=== PATIENT | male | born 1995 | race Caucasian/White ===

== ENCOUNTER 2023-11-16 12:37 | Emergency (ER) | payer OTHER, SELFPAY ==
[2023-11-16 12:38] VITALS: BP 163/98
--- NOTE | 2023-11-16 13:44 | ED.GENMED ---
History of Present Illness
General
Chief Complaint: Abdominal Symptoms
Source: patient
Exam Limitations: none
Time Seen by Provider: 11/16/23 13:31
History of Present Illness
History of Present Illness:
See MDM
Past History
Past History
ED Past Medical History: None
ED Past Surgical History: None
Social History
Tobacco: Non-smoker
Alcohol: None
Drug: Marijuana
Phy Exam
Physical Exam
Physical Exam:
See MDM
Course
Orders/Labs/Results
Orders:
Orders
11/16/23 13:41
0.9% Sodium Chloride 1000 ml [Nss] 1,000 ml IV BOLUS
Iohexol [Omnipaque] See Protocol PO NOW STA
Ketorolac [Toradol] 30 mg IV NOW STA
Ondansetron Injectable [Zofran] 4 mg IV NOW STA
11/16/23 13:42
CT Abd/pel W Iv And Oral Contr Urgent
Comment:
Reason For Exam: General abd pain
11/16/23 14:00
Complete Blood Count/With Diff Urgent
Comprehensive Metabolic Panel Urgent
Lipase Urgent
Magnesium Urgent
11/16/23 15:00
Capsaicin [Zostrix 0.025% Cream] See Dose Instructions TOPICAL ONCE ONE
11/16/23 17:13
0.9% Sodium Chloride 1000 ml [Nss] 1,000 ml IV BOLUS
Ketorolac [Toradol] 15 mg IV NOW STA
Abnormal Lab Results
11/16/23
14:00
WBC 11.1 H 10^3/uL
(4.8-10.8)
RBC 6.99 H 10^6/uL
(4.70-6.10)
MCV 62.7 L fL
(80.0-94.0)
MCH 21.0 L pg
(27.0-31.0)
RDW 17.2 H %
(11.5-14.5)
Plt Count 402 H 10^3/uL
(130-400)
Abs Immat Gran (auto) 0.1 H 10^3/uL
(0-0.05)
Absolute Neuts (auto) 7.6 H 10^3/uL
(1.4-6.5)
Absolute Monos (auto) 1.0 H 10^3/uL
(0.1-0.6)
Sodium 132 L mmol/L
(135-145)
Chloride 94 L mmol/L
(98-107)
Glucose 107 H mg/dl
(70-99)
Magnesium 2.6 H mg/dl
(1.6-2.3)
Total Bilirubin 1.7 H mg/dl
(0.2-1.3)
11/16/23 14:00
11/16/23 14:00
Vital Signs
Initial and Last Documented VS:
Initial Vital Signs
Temp Pulse Resp BP Pulse Ox
98.4 F 89 16 163/98 98
11/16/23 12:38 11/16/23 12:38 11/16/23 12:38 11/16/23 12:38 11/16/23 12:38
Last Documented Vital Signs
Temp Pulse Resp BP Pulse Ox
98.4 F 68 18 156/86 98
11/16/23 12:38 11/16/23 17:00 11/16/23 17:00 11/16/23 17:00 11/16/23 17:00
MDM/Problems Addressed
Differential Diagnosis Includes:
HPI and MDM Narrative:
27-year-old male presenting with persistent nausea, vomiting and diarrhea. This is associated with abdominal cramping. Patient has had several episodes like this over the past year or so. He was told at a different hospital that he has colitis.
Patient saw GI yesterday and has endoscopy and colonoscopy scheduled in 3 weeks. Patient and father concerned that he cannot wait that long. Patient states hot showers helps which made me question whether or not he has been smoking marijuana.
Patient states he has been smoking marijuana but cannot find relationship between the amount that he is smoking and his 'flares'. Patient states his GI doctor did reference possible THC hyperemesis
Will obtain CT to rule out acute pathology. Will give IV fluids and will try capsaicin cream
Physical exam
General: Well appearing and non-toxic
HEENT: protecting airway. Dry mucous membrane
Neck: appears supple
CV: No evidence of cyanosis
Resp: No accessory muscle use
Abd: Non-distended. Vague tenderness throughout. No rebound
Extremities: No deformities
Neuro: alert
Psych: Normal affect
Skin: Intact
Problems Addressed including Acute and Chronic Conditions affecting care:
1. Nausea and vomiting
Acuity: acute
Prognosis: stable
Details: Will give Zofran and capsaicin cream
2. Abdominal pain
Acuity: acute
Prognosis: stable
Details: Will give Toradol and obtain CT abdomen/pelvis
3. Dehydration
Acuity: acute
Prognosis: stable
Details: Will give IV fluids
Updates
After fluids, Toradol and capsaicin cream, patient states he feels drastically better. Blood work without clinical significance and CT negative for acute pathology. Discussed brat diet and keeping his GI appointment
Differential Diagnosis (but not limited to): Cannabis hyperemesis, colitis, acute appendicitis
Testing considered: Stool samples but doubt infectious etiology given the intermittent nature
Drug therapy (if applicable): OTC meds, please see d/c instruction regarding Rx drugs
Amount and/or Complexity of Data Reviewed
Clinical info obtained from: Patient
External data reviewed: N/A
Labs I independently reviewed (but not limited to): Very mild leukocytosis which is likely reactive from vomiting
Radiology: The CT scan was personally and independently reviewed. In addition, official CT report reviewed.
Pulse Ox: not hypoxic
EKG independently reviewed: N/A
Integrity Director: N/A
Critical Care: N/A
Risk of Complication:
Social Determinants of health: Good social support
Discussed with other providers: N/A
Escalation of Care includes Admit/Obs: After being observed in the Emergency Department, pt stable for discharge.
Occasional wrong word or 'sound a like' substitutions may have occurred due to the inherent limitations of voice recognition software. Read the chart carefully and recognize, using context, where substitutions have occurred.
*Critical Care Note
Total Time (30-74mins, 75-104mins- exclusive of procedures): Not Applicable
ED Attending Note
-
Portions of this chart may have been created with voice recognition software.� Occasional wrong word or��sound alike� substitutions may have occurred due to the inherent limitations of voice recognition software.
Discharge Plan
Departure
Patient Disposition: Home (Routine Discharge)
Date of Disposition: 11/16/23
Time of Disposition: 17:15
Patient with high blood pressure during this ER visit?: Yes
Discharge Problem:
Vomiting and diarrhea
Instructions: Nausea and Vomiting, Adult (DC), BLOOD PRESSURE
Prescriptions:
New
diclofenac potassium 50 mg tablet
50 mg PO BID Qty: 14 0RF
ondansetron 4 mg Tablet,Disintegrating
4 mg PO BIDPRN PRN (Reason: nausea/vomiting) Qty: 10 0RF
Referrals:
UNKNOWN - PT DOES,NOT KNOW [Family Provider] -
Activity Restrictions/Additional Instructions:
Please return for any worsening symptoms.
You may return at any time if you have further concerns.
As we discussed, it is not certain what is causing your symptoms. Your blood work and the CT scan showed no acute issues. The next piece of the puzzle is the endoscopy and colonoscopy. Please make sure you do not miss this appointment.
You can use the provided capsaicin cream up to 4 times a day.
Interventions
Interventions:
*Risk Screen - Suicide Last Done: 11/16/23 12:38
*General Assessment Last Done: 11/16/23 12:38
*Neglect/Abuse Screening Last Done: 11/16/23 12:38
ED- Fall Risk Assessment Last Done: 11/16/23 14:56
*ED COVID-19 Vaccine History Last Done: 11/16/23 14:56
JL-Grutdd-[id number] Assessment Last Done: 11/16/23 14:56
Discharge Date and Time
Print Language: TUNISIAN
[2023-11-16] MEDS: ZOFRAN 4 MG IV (13:57)
[2023-11-16] MEDS: TORADOL 30 MG IV (13:57)
[2023-11-16] MEDS: OMNIPAQUE 50 ML PO (13:58)
[2023-11-16] MEDS: NSS 1000 IV ×2 (13:58→17:24)
[2023-11-16 14:11] LABS: % Basophils 0.4 % (0-2); % Eosinophils 0.3 % (0-6); % Immature Granulocytes 0.5 % (0-0.5); % Lymphocytes 20.9 % (20.5-51.1); % Monocytes 9.2 % (1.7-9.3); % Neutrophils 68.7 % (42.2-75.2); Absolute Immature Granulocytes 0.1 10^3/uL (0-0.05); Absolute Lymphocytes 2.3 10^3/uL (1.2-3.4); Absolute Neutrophils 7.6 10^3/uL (1.4-6.5); Hematocrit 43.8 % (39.0-52.0); Hemoglobin 14.7 g/dL (13.0-18.0); Mean Corp Hgb Conc. 33.6 g/dL (33.0-37.0); Mean Corpuscular Volume 62.7 fL (80.0-94.0); Mean Platelet Volume 10.3 fL (7.4-10.4); Nucleated Red Blood Cells % 0 % (-); Platelet Count 402 10^3/uL (130-400); Red Blood Cell Count 6.99 10^6/uL (4.70-6.10); Red Cell Dist. Width 17.2 % (11.5-14.5); White Blood Cell Count 11.1 10^3/uL (4.8-10.8)
[2023-11-16 14:35] LABS: ALT (SGPT) 36 U/L (0-50); AST (SGOT) 38 U/L (17-59); Alkaline Phosphatase 92 U/L (38-126); Blood Urea Nitrogen 13 mg/dl (9-20); Calcium 9.9 mg/dl (8.4-10.2); Carbon Dioxide 24 mmol/L (22-30); Chloride 94 mmol/L (98-107); Glucose 107 mg/dl (70-99); Lipase 275 U/L (23-300); Magnesium 2.6 mg/dl (1.6-2.3); Potassium 3.5 mmol/L (3.5-5.1); Sodium 132 mmol/L (135-145); Total Bilirubin 1.7 mg/dl (0.2-1.3); Total Protein 7.7 g/dl (6.3-8.2); eGFR > 60.00
[2023-11-16 14:52] VITALS: BMI 29.9
[2023-11-16] MEDS: ZOSTRIX 0.025% CREAM 1 APPLIC TOPICAL (15:06)
[2023-11-16 15:09] VITALS: BP 150/95
[2023-11-16 17:00] VITALS: BP 156/86
[2023-11-16] MEDS: TORADOL 15 MG IV (17:23)
[2023-11-16 18:44] VITALS: BP 141/82
== END 2023-11-16 18:45 | disposition home or self-care (01) ==
LOC: EMR 12:37
PROVIDERS: EMERGENCY PHYSICIAN Student in an Organized Health Care Education/Training Program
DX: R11.2 Nausea with vomiting, unspecified (principal); R19.7 Diarrhea, unspecified; R03.0 Elevated blood-pressure reading, without diagnosis of hypertension
CPT/HCPCS: 99285; 96374; 96375; 96376; 74177; 80053; 83690; 83735; 85025; Q9967

== ENCOUNTER 2024-10-10 12:58 | Emergency (ER) | payer OTHER, SELFPAY ==
[2024-10-10 12:58] VITALS: BMI 31.7
[2024-10-10 13:00] VITALS: BP 161/106
--- NOTE | 2024-10-10 13:43 | ED.GENMED ---
History of Present Illness
General
Chief Complaint: Abdominal Pain
Source: patient
Exam Limitations: none
Time Seen by Provider: 10/10/24 13:21
Nursing documentation reviewed up to this point in time: agreed with
History of Present Illness
History of Present Illness:
28-year-old male presents emergency department stating he is unable to keep anything down since Monday. He reports pain to his periumbilical region of his abdomen. He feels very dehydrated. He states only thing that usually makes it feel better
is a hot shower. He states he has not smoked marijuana for a month.
Past History
Past History
ED Past Medical History: None
ED Past Surgical History: None
Social History
Tobacco: Non-smoker
Alcohol: None
Drug: Marijuana
Review of Systems
Review of Systems
Allergies reviewed?: Yes
All Other Systems: Not applicable
Constitutional: Reports no symptoms
EENT: Reports no symptoms
Respiratory: Reports no symptoms
Cardiac: Reports no symptoms
ABD/GI: Reports abdominal pain, nausea and vomiting
: Reports no symptoms
Musculoskeletal: Reports no symptoms
Skin: Reports no symptoms
Neurological: Reports no symptoms
Endocrine: Reports no symptoms
Hematologic/Lymphatic: Reports no symptoms
Psychiatric: Reports no symptoms
Phy Exam
Physical Exam
Physical Exam:
Physical Exam
General: no apparent distress, not acutely ill
Neck: supple. no meningeal signs. normal posterior pharynx
Heart: s1/s2 tachycardia, no murmur. equal radial
pulses.
HEENT: Pupils equal round reactive to light, EOMI
Lungs: no acute respiratory distress. clear bilaterally
Abdomen: normal bowel sounds. not tender. no CVAT
Neuro: alert and oriented. no focal neurological deficits cranial nerves II through XII intact
Skin: no rash
Psychiatric: well kept. interactive and cooperative
Extremities: no edema. no calf tenderness. negative homans. good distal pulses
Course
Orders/Labs/Results
Orders:
Orders
10/10/24 13:29
IV Insert/Care/Rem.- Treatment PRN
0.9% Sodium Chloride 1000 ml [Nss] 1,000 ml IV BOLUS
10/10/24 13:32
Electrocardiogram (*1) Urgent
Reason for Study: QTc Monitoring
EKG- Treatment ONCE
10/10/24 13:43
Capsaicin [Zostrix-Hp 0.075% Cream] See Dose Instructions TOPICAL STAT STA
10/10/24 13:49
Complete Blood Count/With Diff Urgent
Comprehensive Metabolic Panel Urgent
Lipase Urgent
10/10/24 13:54
Haloperidol Lactate [Haldol] 1 mg IV NOW STA
Abnormal Lab Results
10/10/24
13:49
WBC 17.7 H 10^3/uL
(4.8-10.8)
RBC 7.31 H 10^6/uL
(4.70-6.10)
MCV 62.5 L fL
(80.0-94.0)
MCH 21.3 L pg
(27.0-31.0)
RDW 17.5 H %
(11.5-14.5)
MPV 10.8 H fL
(7.4-10.4)
Abs Immat Gran (auto) 0.1 H 10^3/uL
(0-0.05)
Absolute Neuts (auto) 14.4 H 10^3/uL
(1.4-6.5)
Absolute Monos (auto) 1.3 H 10^3/uL
(0.1-0.6)
Neutrophils % 81.1 H %
(42.2-75.2)
Lymphocytes % 10.9 L %
(20.5-51.1)
Carbon Dioxide 18 L mmol/L
(22-30)
BUN 25 H mg/dl
(9-20)
Creatinine 1.5 H mg/dL
(0.7-1.3)
Glucose 111 H mg/dl
(70-99)
Calcium 10.9 H mg/dl
(8.4-10.2)
Total Bilirubin 3.6 H mg/dl
(0.2-1.3)
Total Protein 9.5 H g/dl
(6.3-8.2)
Albumin 5.9 H g/dl
(3.5-5.0)
10/10/24 13:49
10/10/24 13:49
Vital Signs
Initial and Last Documented VS:
Initial Vital Signs
Temp Pulse Resp BP Pulse Ox
98.8 F 125 18 161/106 97
10/10/24 13:00 10/10/24 13:00 10/10/24 13:00 10/10/24 13:00 10/10/24 13:00
Last Documented Vital Signs
Temp Pulse Resp BP Pulse Ox
98.8 F 99 26 158/99 91
10/10/24 13:00 10/10/24 15:00 10/10/24 13:47 10/10/24 14:00 10/10/24 15:00
MDM/Problems Addressed
Differential Diagnosis Includes:
Appendicitis, diverticulitis, bowel obstruction
MDM/Problems Addressed:
28-year-old male with nausea vomiting, likely due to cannabis hyperemesis. Patient feels better after Haldol and capsaicin. Mild hyperbilirubinemia and elevated creatinine. Patient will follow-up with primary care to have these labs repeated.
Zofran prescribed. Patient advised to avoid cannabis.
*Pulse Oximetry
SaO2: 97
Oxygen Mode of Delivery: Room air
Patient hypoxic: no
*EKG
Interpreted by ED Provider?: Yes
EKG Intrepretation Date: 10/10/24
EKG Intrepretation Time: 13:45
Interpretation: abnormal
Comparison EKG: no comparison EKG present
Heart Rate: 111
Rate: tachycardiac
Rhythm: sinus tachycardia
Derry: normal axis
Interval: normal interval
QRS Pattern: normal QRS
Ischemia: no ischemia
*Control Panel Assembler Interpretation
Rate: tachycardiac
Interpretation: abnormal
Heart Rate: 101
Rhythm: sinus tachycardia
*Critical Care Note
Total Time (30-74mins, 75-104mins- exclusive of procedures): Not Applicable
Data Reviewed
Review of Other/Old Records Reveals: Labs (prior bili 1.7, prior cr 1.1)
Source: records
Patient Management
Social determinants of health affecting care: Living situation and Strong social support
Discussion with other providers: Market Survey Representative (d/w Dr. Packer, GI, recommends f/u labs by pcp)
ED Attending Note
-
Portions of this chart may have been created with voice recognition software.� Occasional wrong word or��sound alike� substitutions may have occurred due to the inherent limitations of voice recognition software.
Discharge Plan
Departure
Patient Disposition: Home (Routine Discharge)
Date of Disposition: 10/10/24
Time of Disposition: 15:44
Patient with high blood pressure during this ER visit?: Yes
Condition: Good
Discharge Problem:
Vomiting, Cannabis hyperemesis syndrome concurrent with and due to cannabis abuse
Instructions: Abdominal Pain
Prescriptions:
New
ondansetron 4 mg tablet,disintegrating
4 mg PO Q8H PRN (Reason: nausea and vomiting) 4 Days Qty: 7 0RF
No Action
diclofenac potassium 50 mg tablet
50 mg PO BID Qty: 14 0RF
ondansetron 4 mg Tablet,Disintegrating
4 mg PO BIDPRN PRN (Reason: nausea/vomiting) Qty: 10 0RF
Referrals:
Jaswinder Garcia DO [Family Provider, Family Practice] - Call in 1-3 days for appt
Referral Note: get repeat comprehensive metabolic panel to reevaluate creatinine and bilirubin in 1 week
Interventions
Interventions:
*Risk Screen - Suicide Last Done: 10/10/24 13:00
*General Assessment Last Done: 10/10/24 13:00
*Neglect/Abuse Screening Last Done: 10/10/24 13:00
*ED- Fall Risk Assessment Last Done: 10/10/24 13:54
*ED COVID-19 Vaccine History Last Done: 10/10/24 13:54
CE-Uojtgl-Yogwdypxdk Assessment Last Done: 10/10/24 13:54
Discharge Date and Time
Print Language: FIJIAN
[2024-10-10 13:47] VITALS: BP 146/117
[2024-10-10] MEDS: NSS 1000 IV (13:51)
[2024-10-10] MEDS: ZOSTRIX-HP 0.075% CREAM 1 APPLIC TOPICAL (13:57)
[2024-10-10] MEDS: HALDOL 1 MG IV (13:57)
[2024-10-10 14:00] VITALS: BP 158/99
[2024-10-10 14:11] LABS: Hematocrit 45.7 % (39.0-52.0); Hemoglobin 15.6 g/dL (13.0-18.0); Mean Corp Hgb Conc. 34.1 g/dL (33.0-37.0); Mean Corpuscular Volume 62.5 fL (80.0-94.0); Nucleated Red Blood Cells % 0 % (-); Platelet Count 380 10^3/uL (130-400); Red Cell Dist. Width 17.5 % (11.5-14.5)
[2024-10-10 14:20] LABS: ALT (SGPT) 44 U/L (0-50); AST (SGOT) 54 U/L (17-59); Albumin 5.9 g/dl (3.5-5.0); Alkaline Phosphatase 97 U/L (38-126); Blood Urea Nitrogen 25 mg/dl (9-20); Calcium 10.9 mg/dl (8.4-10.2); Carbon Dioxide 18 mmol/L (22-30); Chloride 99 mmol/L (98-107); Estimated Creatinine Clearance 91 ml/min; Glucose 111 mg/dl (70-99); Potassium 3.7 mmol/L (3.5-5.1); Sodium 135 mmol/L (135-145); Total Protein 9.5 g/dl (6.3-8.2); eGFR > 60.00
[2024-10-10 14:42] LABS: Lipase 161 U/L (23-300)
== END 2024-10-10 16:43 | disposition home or self-care (01) ==
LOC: EMR 12:58
PROVIDERS: EMERGENCY PHYSICIAN Emergency Medicine; FAMILY PHYSICIAN Family Medicine
DX: R10.9 Unspecified abdominal pain (principal); R11.2 Nausea with vomiting, unspecified; F12.10 Cannabis abuse, uncomplicated
CPT/HCPCS: 99283; 96374; 96361; 80053; 83690; 85025; 93005